=== PATIENT | female | born 1990 | race Caucasian/White ===

== ENCOUNTER 2021-01-09 14:58 | Emergency (ER) | payer SELFPAY ==
[~2021-01-09] VITALS: Ht 157.5 cm; Wt 89.0 kg
[2021-01-09] MEDS ORDERED: SODIUM CHLORIDE 0.9% 1,000 ML IV ONE (16:00)
[2021-01-09] MEDS ORDERED: ACETAMINOPHEN 325MG TABLET PO ONE (16:30)
[2021-01-09 16:36] LABS: BASOPHILS % 0.6 % (0.0-2.0); HEMATOCRIT. 42.8 % (36.0-48.0); HEMOGLOBIN. 14.7 g/dL (12.0-16.0); LYMPHOCYTES % 41.3 % (20.0-50.0); MEAN CORPUSCULAR HEMOGLOBIN 27.8 pg (28.0-32.0); MEAN CORPUSCULAR VOLUME 81.2 fL (81.0-99.0); MEAN PLATELET VOLUME 8.9 fl (7.4-10.4); MONOCYTES % 10.8 % (2.0-8.0); NEUTROPHILS % 47.3 % (40.0-76.0); PLATELET 119 x1000/uL (130-400); RED BLOOD CELL COUNT 5.27 mill/uL (4.2-5.4); RED CELL DISTRIBUTION WIDTH 14.8 % (11.6-14.6)
[2021-01-09 16:40] LABS: CHLORIDE 100 mEq/L (98-107)
[2021-01-09 16:42] LABS: HCG SCREEN NEGATIVE
[2021-01-09 18:15] VITALS: BP 120/76
[2021-01-09] MEDS ORDERED: IBUP-2028 MT (18:23)
[2021-01-09] MEDS ORDERED: AZIT250T MT (18:23)
[2021-01-09] MEDS ORDERED: CEFTRIAXONE 1 G PREMIX 50 ML IV ONE (18:30)
== END 2021-01-09 18:59 | disposition home or self-care (01) ==
LOC: ER 16:42
DX: U07.1 COVID-19 (principal); J12.82 Pneumonia due to coronavirus disease 2019
CPT/HCPCS: 36415; 71045; 80053; 84703; 85025; 93005; 96361; 96365; 99285; J0696; J7030

== ENCOUNTER 2021-01-10 14:15 | Inpatient (IN) | payer SELFPAY ==
[~2021-01-10] VITALS: Ht 160 cm; Wt 83.5 kg
[~2021-01-10 14:15] MED LIST: AZIT250T MT; IBUP-2028 MT
[2021-01-10] MEDS ORDERED: CEFTRIAXONE 1 G PREMIX 50 ML IV ONE (15:00)
[2021-01-10] MEDS ORDERED: DEXAMETHASONE 10 MG/ML VIAL IV ONE (15:00)
[2021-01-10] MEDS ORDERED: SODIUM CHLORIDE 0.9% 1000ML BAG (SEPSIS BOLUS) IV ONE (15:00)
[2021-01-10] MEDS ORDERED: AZITHROMYCIN 500 MG in DEXT 5% WATER 250 ML IV ONE (15:00)
[2021-01-10] MEDS ORDERED: ACETAMINOPHEN 325MG TABLET PO ONE (15:15)
[2021-01-10 15:27] LABS: BASOPHILS % 0.6 % (0.0-2.0); HEMATOCRIT. 40.2 % (36.0-48.0); LYMPHOCYTES % 31.1 % (20.0-50.0); MEAN CORPUSCULAR HEMOGLOBIN 28.2 pg (28.0-32.0); MEAN CORPUSCULAR VOLUME 80.8 fL (81.0-99.0); MEAN PLATELET VOLUME 8.8 fl (7.4-10.4); MONOCYTES % 10.7 % (2.0-8.0); NEUTROPHILS % 57.6 % (40.0-76.0); PLATELET 153 x1000/uL (130-400); RED BLOOD CELL COUNT 4.97 mill/uL (4.2-5.4); RED CELL DISTRIBUTION WIDTH 14.7 % (11.6-14.6)
[2021-01-10 15:30] LABS: CHLORIDE 103 mEq/L (98-107)
[2021-01-10 15:35] LABS: HCG SCREEN NEGATIVE
[2021-01-10 16:29] LABS: CLARITY URINE CLEAR (CLEAR); COLOR URINE RED (YELLOW); KETONES URINE NEGATIVE (NEGATIVE); LEUKOCYTE ESTERASE URINE NEGATIVE (NEGATIVE); NITRITE URINE NEGATIVE (NEGATIVE); OCCULT BLOOD URINE 3+ (NEGATIVE); PH URINE 6.5 (4.5-8.0); PROTEIN URINE 2+ (NEGATIVE); SPECIFIC GRAVITY URINE 1.006 (1.005-1.030); UROBILINOGEN URINE 0.2 E.U./dL (0.2-1.0)
[2021-01-10] MEDS ORDERED: ACETAMINOPHEN 325MG TABLET PO PRN (18:30)
[2021-01-10] MEDS ORDERED: ONDANSETRON HCL 4MG/2ML INJ IV PRN (18:30)
[2021-01-10] MEDS ORDERED: CLONIDINE 0.1MG TABLET PO PRN (18:30)
[2021-01-10] MEDS ORDERED: DOCUSATE SODIUM 100MG CAPSULE PO PRN (18:30)
[2021-01-10] MEDS ORDERED: GUAIFENESIN 200MG/10ML SUGAR FREE UDC PO PRN (18:30)
[2021-01-10 22:00] VITALS: BP 120/82
[2021-01-10 22:03] VITALS: BP 120/82
[2021-01-10] MEDS: ENOXAPARIN 40MG/0.4ML SYR SUBCUT SCH (22:23)
[2021-01-11] VITALS: BP 115/82
[2021-01-11 04:00] VITALS: BP 114/79
[2021-01-11 08:00] VITALS: BP 113/79
[2021-01-11 08:00] LABS: HEMOGLOBIN. 13.6 g/dL (12.0-16.0); MEAN CORPUSCULAR HEMOGLOBIN 27.1 pg (28.0-32.0); MEAN CORPUSCULAR VOLUME 81.6 fL (81.0-99.0); MEAN PLATELET VOLUME 8.2 fl (7.4-10.4); PLATELET 163 x1000/uL (130-400); RED BLOOD CELL COUNT 5.02 mill/uL (4.2-5.4); RED CELL DISTRIBUTION WIDTH 14.7 % (11.6-14.6)
[2021-01-11 08:08] LABS: CHLORIDE 107 mEq/L (98-107)
[2021-01-11] MEDS: DEXAMETHASONE 10 MG/ML VIAL IV SCH (08:25)
[2021-01-11 12:00] VITALS: BP 134/92
[2021-01-11] MEDS: AZITHROMYCIN 500 MG in DEXT 5% WATER 250 ML IV SCH (14:35)
[2021-01-11] MEDS: CEFTRIAXONE 1,000 MG in DEXTROSE 5% WATER 50 ML IV SCH (14:35)
[2021-01-11] MEDS ORDERED: AZITHROMYCIN 500 MG in DEXT 5% WATER 250 ML IV SCH (15:00)
[2021-01-11] MEDS ORDERED: CEFTRIAXONE 1 G PREMIX 50 ML IV SCH (15:00)
[2021-01-11 16:00] VITALS: BP 113/80
[2021-01-11 19:42] LABS: PLATELET ESTIMATE NORMAL
[2021-01-11 20:00] VITALS: BP 123/81
[2021-01-11] MEDS: ENOXAPARIN 40MG/0.4ML SYR SUBCUT SCH (20:52)
[2021-01-11] MEDS ORDERED: ALBUTEROL 6.7GM HFA INHALER ORI PRN (21:15)
[2021-01-12 00:05] VITALS: BP 110/72
[2021-01-12 04:00] VITALS: BP 104/79
[2021-01-12 08:00] VITALS: BP 108/61
[2021-01-12] MEDS: DEXAMETHASONE 10 MG/ML VIAL IV SCH (08:03)
[2021-01-12 12:00] VITALS: BP 121/85
[2021-01-12] MEDS: CEFTRIAXONE 1,000 MG in DEXTROSE 5% WATER 50 ML IV SCH (12:08)
[2021-01-12] MEDS: AZITHROMYCIN 500 MG in DEXT 5% WATER 250 ML IV SCH (13:53)
[2021-01-12 15:51] VITALS: BP 111/61
[2021-01-12] MEDS ORDERED: DEX6 MT (16:13)
[2021-01-12 16:29] VITALS: BP 111/61
== END 2021-01-12 17:10 | disposition home or self-care (01) | DRG 720 ==
LOC: ER 15:08 → 7WST 17:54 → EDBEDREQ 17:56 → EDBEDREQTM 17:56 → ENRESERV 19:17 → 7WST 22:23
PROVIDERS: ADMIT Hospitalist; ATTEND Hospitalist
DX: A41.89 Other specified sepsis (principal); U07.1 COVID-19; J96.00 Acute respiratory failure, unspecified whether with hypoxia or hypercapnia; J12.82 Pneumonia due to coronavirus disease 2019; J40 Bronchitis, not specified as acute or chronic; R74.01 Elevation of levels of liver transaminase levels; Z79.899 Other long term (current) drug therapy
CPT/HCPCS: 36415; 71045; 80053; 81003; 82728; 83605; 83615; 83880; 84145; 84484; 84703; 85025; 85379; 86140; 93005; 99285; J0456; J0696; J1100; J1650; J7030; J7040; J7060; U0003; U0005